=== PATIENT | male | born 1945 | race Asian ===

== ENCOUNTER 2017-11-26 17:19 | Emergency (ER) | payer OTHER ==
[~2017-11-26] VITALS: Ht 177.8 cm; Wt 78.0 kg
[2017-11-26 20:23] VITALS: BP 141/67
[2017-11-26] MEDS ORDERED: METHOCARBAMOL 500 MG TAB PO ONE (20:45)
[2017-11-26] MEDS ORDERED: KETOROLAC TROMETH 30 MG/ML 1ML VIAL IM ONE (20:45)
== END 2017-11-26 21:25 | disposition home or self-care (01) ==
LOC: ER 17:22
DX: M54.5 Low back pain (principal); E11.9 Type 2 diabetes mellitus without complications; E78.5 Hyperlipidemia, unspecified; V43.62XA Car passenger injured in collision with other type car in traffic accident, initial encounter; Y93.89 Activity, other specified; Y99.8 Other external cause status; Y92.410 Unspecified street and highway as the place of occurrence of the external cause
CPT/HCPCS: 70450; 72125; 72131; 96372; 99284; J1885

== ENCOUNTER 2022-06-21 14:39 | Emergency (ER) | payer OTHER ==
[~2022-06-21] VITALS: Ht 177.8 cm; Wt 90.9 kg
[2022-06-21 15:54] LABS: Basophils # (auto) 0 10 ^3/uL (0-0.2); Basophils % (auto) 0.3 % (0.0-2.0); Eosinophils # (auto) 0.1 10 ^3/uL (0-0.8); Eosinophils % (auto) 1.2 % (0.0-7.0); Hematocrit 42.7 % (41.0-53.0); Hemoglobin 15.2 g/dL (13.5-17.5); Lymphocytes # (auto) 0.6 10 ^3/uL (0.4-5.4); Lymphocytes % (auto) 7.6 % (10.0-50.0); Mean Corpuscular Hemoglobin 31.6 pg (28.0-32.0); Mean Corpuscular Hgb Conc. 35.6 g/dL (32.0-36.0); Mean Corpuscular Volume 88.7 fL (80.0-100.0); Monocytes # (auto) 0.4 10 ^3/uL (0-1.3); Monocytes % (auto) 5.7 % (0.0-12.0); Neutrophils # (auto) 6.6 10 ^3/uL (1.6-8.6); Neutrophils % (auto) 85.2 % (37.0-80.0); Nucleated Red Blood Cells % 0.1 %; Red Blood Cells 4.81 10^6/uL (4.5-5.90); Red Cell Distribution Width 13.8 % (11.8-14.3); White Blood Cell 7.8 10^3/uL (4.4-10.8)
[2022-06-21 16:06] LABS: Albumin 3.9 g/dL (3.4-5.0); Calcium 8.9 mg/dL (8.5-10.1); Potassium 4.1 mmol/L (3.5-5.1)
[2022-06-21 16:08] LABS: BUN/Creatinine Ratio 18.8
[2022-06-21 16:11] LABS: Bilirubin, Total 0.5 mg/dL (0.2-1.0)
[2022-06-21 21:11] LABS: Urine Bacteria NONE SEEN /hpf (None Seen); Urine Blood Negative /uL (Negative); Urine Mucus FEW (None Seen); Urine Specific Gravity 1.011 (1.001-1.035); Urine WBC 1 /hpf (0 - 3)
[2022-06-21 22:06] VITALS: BP 150/75
== END 2022-06-21 22:06 | disposition home or self-care (01) ==
LOC: EDBD 14:39 → ER 14:42
DX: R55 Syncope and collapse (principal); R11.0 Nausea; E11.9 Type 2 diabetes mellitus without complications; E78.5 Hyperlipidemia, unspecified; R07.89 Other chest pain
CPT/HCPCS: 36415; 70450; 71045; 80053; 81001; 82962; 84484; 85025; 93005